=== PATIENT | female | born 1980 | race Caucasian/White ===

== ENCOUNTER 2023-09-06 11:45 | Outpatient (CLI) | payer OTHER | END 2023-09-06 11:46 | disposition home or self-care (01) | LOC: PET 11:45 | PROVIDERS: ATTEND Radiology Radiation Oncology | DX: C50.511 Malignant neoplasm of lower-outer quadrant of right female breast (principal); R59.0 Localized enlarged lymph nodes; Z98.890 Other specified postprocedural states | CPT/HCPCS: 78815; A9552 ==

== ENCOUNTER 2024-08-28 08:48 | Outpatient (CLI) | payer BC | END 2024-08-28 08:49 | disposition home or self-care (01) | LOC: BICMAMMO 08:48 | PROVIDERS: ATTEND Specialist | DX: Z08 Encounter for follow-up examination after completed treatment for malignant neoplasm (principal); Z85.3 Personal history of malignant neoplasm of breast | CPT/HCPCS: 77066; G0279 ==